=== PATIENT | male | born 1975 | race Hispanic/Latino ===

== ENCOUNTER → 2020-03-02 | Outpatient (CLI) | payer OTHER ==
--- NOTE | 2020-03-02 15:32 | Diagnostic Imaging Report ---
EXAMINATION: SP LUMBAR, COMPLETE MIN 4VW INDICATION: Right leg pain COMPARISON: None FINDINGS: AP, lateral and oblique images of the lumbar spine were obtained. No acute fracture. Vertebral body heights are maintained. Alignment is anatomic without spondylolisthesis. Oblique images demonstrate no evidence of spondylolysis. No substantial degenerative change. IMPRESSION: Anatomic alignment of the lumbar spine without acute osseous injury. Signed by: Isabella Potts MD on 03/02/2020 3:29 PM
--- NOTE | 2020-03-02 15:57 | Diagnostic Imaging Report ---
EXAMINATION: FEMUR TWO VIEW MINIMUM RIGHT, LOWER LEG RIGHT INDICATION: Leg pain COMPARISON: None FINDINGS: AP, oblique and lateral images of the right femur and tibia/fibula were obtained. No acute fracture or dislocation. Alignment appears anatomic. No substantial knee or ankle joint effusion. Mild Achilles enthesopathy. No substantial degenerative change. IMPRESSION: No acute osseous injury. Signed by: Isabella Potts MD on 03/02/2020 3:53 PM
== END ==
LOC: RAD 14:30
PROVIDERS: ATTEND Internal Medicine
DX: M79.606 Pain in leg, unspecified (principal); M54.5 Low back pain
CPT/HCPCS: 72110